=== PATIENT | female | born 1940 | race Caucasian/White ===

== ENCOUNTER 2019-01-16 08:34 | Outpatient (CLI) | payer MEDICARE ==
--- NOTE | 2019-01-16 09:45 | XRay Report ---
CHEST 2 VIEWS 0905 INDICATION / CLINICAL INFORMATION: Mild hemoptysis for 2 days, blood-tinged sputum. COMPARISON: None available. FINDINGS: SUPPORT DEVICES: None. HEART / MEDIASTINUM: No significant abnormality. LUNGS / PLEURA: Mild chronic pulmonary changes are noted. Evidence of COPD is seen. No obvious acute infiltrates are noted. Minimal linear atelectasis and/or scarring is seen in the left base. No defini te pleural effusions are seen. No obvious nodules or masses are noted. No pneumothorax. ADDITIONAL FINDINGS: No significant additional findings. IMPRESSION: No significant acute abnormality Signer Name: Tomas Jc MD Signed: 01/16/2019 9:41 AM Workstation Name: [id number]
== END 2019-01-16 08:35 | disposition home or self-care (01) ==
LOC: XRAY 08:34
PROVIDERS: ATTEND Internal Medicine
DX: J44.9 Chronic obstructive pulmonary disease, unspecified (principal)
CPT/HCPCS: 71046